=== PATIENT | female | born 1955 | race Caucasian/White ===

== ENCOUNTER → 2016-04-23 | Outpatient (CLI) | payer BC ==
[~2016-04-23] MED LIST: APAP500 PO; ARIMIDEX1 MG PO; CENTRUM SILVER1 EAC4 PO; CLONAZEPAM 1 MG1 M1 PO; COUMADIN 1MG TAB1 M1 PO; FISH OIL 1,001000 M2 PO; GLUCOSAMINE CH1 EAC2 PO; KLONOPIN0.5 MG PO; LISINOPRIL-HCT1 EACH PO; NORCO 5-325 TA1 EACH PO; PHENERGAN 25 MG25 M1 PO; TRAMADOL 50 MG50 MG PO; VALIUM5 MG PO; VITAMIN D3400 UNI2 PO
== END ==
LOC: RAD 09:35
DX: R92.8 Other abnormal and inconclusive findings on diagnostic imaging of breast (principal)

== ENCOUNTER → 2017-04-30 | Outpatient (CLI) | payer BC | LOC: RAD 02:06 | DX: R92.8 Other abnormal and inconclusive findings on diagnostic imaging of breast (principal) ==

== ENCOUNTER → 2018-05-13 | Outpatient (CLI) | payer BC | LOC: RAD 01:48 | DX: R92.8 Other abnormal and inconclusive findings on diagnostic imaging of breast (principal); Z85.3 Personal history of malignant neoplasm of breast ==

== ENCOUNTER → 2019-04-24 | Outpatient (CLI) | payer OTHER | LOC: NUC 11:53 | DX: Z13.820 Encounter for screening for osteoporosis (principal); C50.411 Malignant neoplasm of upper-outer quadrant of right female breast; I10 Essential (primary) hypertension; Z17.0 Estrogen receptor positive status [ER+]; Z78.0 Asymptomatic menopausal state; Z79.811 Long term (current) use of aromatase inhibitors ==

== ENCOUNTER → 2019-05-04 | Outpatient (CLI) | payer OTHER | LOC: RAD 10:22 | DX: R92.2 Inconclusive mammogram (principal) ==

== ENCOUNTER → 2019-09-21 | Outpatient (CLI) | payer OTHER | LOC: ULTRA 13:09 | PROVIDERS: ATTEND Surgery Plastic and Reconstructive Surgery | DX: Z85.3 Personal history of malignant neoplasm of breast (principal) ==

== ENCOUNTER → 2020-02-26 | Outpatient (CLI) | payer OTHER | LOC: RAD 16:08 | PROVIDERS: ATTEND Neuromusculoskeletal Medicine & OMM | DX: M51.17 Intervertebral disc disorders with radiculopathy, lumbosacral region (principal); M41.86 Other forms of scoliosis, lumbar region; M48.061 Spinal stenosis, lumbar region without neurogenic claudication ==

== ENCOUNTER → 2020-05-20 | Outpatient (CLI) | payer OTHER | LOC: BC 08:44 | PROVIDERS: ATTEND Neuromusculoskeletal Medicine & OMM | DX: Z85.3 Personal history of malignant neoplasm of breast (principal) ==

== ENCOUNTER → 2021-05-14 | Outpatient (CLI) | payer OTHER | LOC: BC 10:56 | PROVIDERS: ATTEND Nurse Practitioner | DX: Z12.31 Encounter for screening mammogram for malignant neoplasm of breast (principal); N64.59 Other signs and symptoms in breast ==